=== PATIENT | female | born 1980 | race Caucasian/White ===

== ENCOUNTER → 2018-05-24 09:12 | Outpatient (CLI) | payer OTHER, SELFPAY ==
--- NOTE | 2018-05-27 13:46 | HOLTER_ITS ---
DATE OF DICTATION: May 27, 2018 INDICATION: Palpitations. 48-hour Holter Monitor Baseline sinus rhythm. Average heart rate 91 bpm, minimum heart rate 63 bpm, maximum heart rate 153 bpm. Frequent isolated ventricular ectopy, accounting for 0.3% of total beats. No non-sustained VT. No atrial fibrillation. Rare isolated PAC. No significant pauses or bradyarrhythmias. Patient diary entries of palpitations correspond to sinus rhythm.
== END ==
PROVIDERS: PCP Family Medicine; Visit Provider Family Medicine
DX: R00.2 Palpitations (principal); I49.3 Ventricular premature depolarization; I49.1 Atrial premature depolarization
CPT/HCPCS: 93225

== ENCOUNTER 2019-02-05 08:56 | Emergency (ER) | payer OTHER, SELFPAY ==
--- NOTE | 2019-02-05 09:04 | NUR.NOTE ---
pt states that she developed palpitations a few days ago after which she went to see her PCP who placed her on a batablocker since then PT has felt general malaise and nausea
[2019-02-05 09:07] VITALS: BP 156/109; PULSE 72; RESP 16; TEMP 37.2; O2SAT 98
--- NOTE | 2019-02-05 09:24 | ED.GENADUL_ITS ---
Discharge Plan Disposition Patient Disposition: HOME Condition: Improving Discharge Details Chief Complaint: Nausea/Vomit/Diar Clinical Impression: Anxiety, Medication adverse effect Primary Care Provider: Dave Figueroa ED Provider: Miriam Worthington Home Meds and New Rx's Prescriptions: Discontinued metoprolol succinate 50 mg Tablet Extended Release 24 Hr 50 mg PO DAILY RF: 0 Discharge Instructions Instructions: Anxiety (ED) Additional Instructions: Encourage hydration. Stop taking metoprolol. Please follow-up with your primary care this week for reevaluation. Take your blood pressure when at home, calm and document this discussed with your primary care physician. Try anxiety breaking techniques as discussed. If you develop chest pain, shortness of breath, recurrent symptoms or other new/worsening symptoms please seek care urgently once again Stand Alone Forms: Work Release Referrals: Dave Figueroa [Primary Care Provider] - Medical Decision Making <JUANITO Santizo - Last Filed: 02/05/19 11:33> Patient is a 38 year old female presenitng today with c/c of feeling unwell associated with her new medication, Metoprolol. She began the medications 3 days ago and since then has been experiencing intermittent lightheadedness, palpitations. She reports that these sensations then increase her anxiety leading to increased symtpoms. Patient reports that she took metoprolol this morning. Patient also uses a herbal remedy of rescue remedy for stress relief which she also used this morning. She denies any chest pain but has continued to experience palpitations. No shortness of breath. Patient appears teary and very anxious on exam. Patient is hypertensive at 156/109. Reports normal at 72, vital signs otherwise unremarkable. Plan to reassess patient's blood pressure when she is been able to calm down some she does appear quite anxious at this time. Will review the Holter monitor from 1 year ago. She has been using herbal anxiolytic for the past year, tried to find literature about its ingredients, no literature available. Will obtain EKG, labs. Patient endorsing nausea which she reports is typical for her anxiety, will give ODT Zofran after EKG. EKG reviewed by Dr. Mackay, NSR rate 61, no acute abnormality. Repeat vitals much improved with no hypertension. Labs evaluation is reassuring. Patient is feeling much improved. Her vital signs are improved. She is resting comfortably at this time. I advised that she stop taking metoprolol and follow-up with her primary care this week. Patient has not also checked her blood pressure when not feeling anxious in the physician's office. I advised that she begin checking her blood pressure at home at staggering intervals and keep record of this for her primary care physician. She was given strict return precautions. I encouraged hydration. All of her questions and concerns were addressed and she is in agreement with this plan. <Portillo Mackay DO - Last Filed: 02/05/19 09:54> EKG 9: 35 Rate 61, intervals normal, sinus rhythm, inverted T wave in V1, no Q waves, no significant ST elevation or depression, no epsilon wave, or delta wave. HPI <JUANITO Santizo - Last Filed: 02/05/19 11:33> General Mode of arrival: ambulatory . Date/Time Provider Initiated Documentation: 02/05/19 08:57 . Limitations to Documentation: no limitations . Information obtained by: patient and RN notes reviewed . HPI Narrative: Patient a 38-year-old female with history of anxiety and hypertension, presents today with chief complaint of feeling unwell after taking metoprolol. Patient was seen by her primary care 4 days ago at which time she was noted to be hypertensive. She sought their care after experiencing palpitations. She reports that she has had issues with palpitations since her father committed suicide almost 1 year ago. She did wear a Holter monitor initially which was found to be without significant abnormality. She reports the palpitations have persisted and her primary attributed this to her high blood pressure. Begin her metoprolol which patient reports is making her feel quite poorly. Has been feeling dizzy and presyncopal. Denies any chest pain or shortness of breath. Has been experiencing palpitations still. Has been feeling very anxious recently, has history of anxiety attacks. Denies any thoughts of self harm, suicidal ideation. Related Data Allergies Allergy/AdvReac Type Severity Reaction Status Date / Time escitalopram [From Lexapro] AdvReac Intermediate Agitation Unverified 02/05/19 09:10 Review of Systems <JUANITO Santizo - Last Filed: 02/05/19 11:33> Constitutional Reports as per HPI, Denies chills, Denies fever(s), Denies headache(s), Denies lethargy and Denies poor appetite Eyes Denies change in vision ENT Reports dizziness (lightheaded) and Denies headache(s) Cardiovascular Reports as per HPI, Denies chest pain, Denies chest pain at rest, Denies chest pain with activity, Denies diaphoresis, Denies syncope, Reports rapid heart rate, Reports lightheadedness, Reports palpitations, Denies dyspnea and Denies dyspnea on exertion Respiratory Reports as per HPI, Denies chest congestion, Denies cough, Denies pain on inspiration, Denies pain with cough, Denies dyspnea, Denies dyspnea on exertion and Denies wheezing Gastrointestinal Reports as per HPI, Denies abdominal pain, Denies diarrhea, Reports nausea (endorses with ) and Denies vomiting Musculoskeletal Reports as per HPI and Denies back pain Integumentary/Breasts Reports as per HPI and Denies rash Neurologic Reports as per HPI, Reports dizziness (lightheaded), Denies syncope and Denies headache(s) Psychiatric Reports as per HPI, Reports anxiety, Reports depression, Reports panic attacks, Denies hallucinations, Denies homicidal ideation and Denies suicidal ideation Endocrine Reports palpitations Allergic/Immunologic Denies wheezing PFSH <JUANITO Santizo - Last Filed: 02/05/19 11:33> Social History Smoking/Tobacco Use Status: Never Alcohol Intake: current Alcohol Intake frequency: holidays/special occasions only Alcohol type: hard liquor Drug use: Never Substance use type: does not use Do you feel safe at home: Yes Do you feel safe in your relationship?: Yes Exam <JUANITO Santizo - Last Filed: 02/05/19 11:33> Const General: cooperative, healthy appearing, comfortable, no acute distress, well developed and anxious Nutritional Appearance: well nourished and overweight Orientation: alert, awake and oriented x3 HENMT Head: normal to inspection Ears: hearing grossly normal bilaterally Mouth: moist mucous membranes Chest Chest: normal inspection of the chest, normal palpation of entire chest wall and no crepitus Resp Effort & Inspection: normal respiratory effort, able to speak in complete sentences and no respiratory distress Auscultation: clear to auscultation bilaterally, no rales, no rhonchi and no wheezes Cardio Rate: regular rate Rhythm: regular rhythm Heart Sounds: S1 normal and S2 normal GI Inspection: normal to inspection, no edema and non-distended Palpation: soft, no hepatosplenomegaly, not firm, no guarding, not rigid and nontender Auscultation: normal bowel sounds Back/Spine/Pelvis Back: no CVA tenderness Thoracic/Lumbar Spine: thoracic and lumbar spine normal to inspection Skin General skin exam: no rashes or lesions noted Trauma: no lacerations or abrasions Neuro General: alert, awake and oriented x3 Cognition: normal cognition Speech: speech normal Gait: normal gait Extrem General: normal to inspection, normal capillary refill, no pedal edema, no calf tenderness and normal gait Psych Appearance: grossly normal and well kempt Mental Status: mental status grossly normal Speech and Movement: speech and movement normal
[2019-02-05 09:49] LABS: Abs Immature Grans 0.01 k/cumm (0.0-0.09); Absolute Basophil Count 0.06 k/cumm (0.0-0.2); Absolute Eosinophil Count 0.12 k/cumm (0.0-0.7); Absolute Lymphocyte Count 2.39 k/cumm (1.2-3.4); Absolute Monocyte Count 0.58 k/cumm (0.11-0.7); Absolute Neutrophil Count 2.92 k/cumm (1.2-6.7); HCT 41.7 % (36.0-46.0); HGB 14.2 g/dL (12.0-15.5); Immature Grans % 0.2; Lymphocytes % 39.3; Mean Corp. HGB Concentration 34.1 g/dL (32.0-36.0); Mean Corpuscular Hemoglobin 32.3 pg (27.0-33.0); Mean Corpuscular Volume 94.8 fL (80-95); Mean Platelet Volume 9.7 fL (8.0-11.0); Monocytes % 9.5; Platelet Count 323 x1000/uL (130-400); RBC Distribution Width 12.6 % (11.7-14.6); White Blood Cell Count 6.08 k/cumm (4.4-10.8)
[2019-02-05] MEDS: Ondansetron O.D.T. 4 MG TABEF (09:49)
[2019-02-05 09:52] VITALS: BP 122/85; PULSE 59; RESP 18; TEMP 37.2; O2SAT 98
[2019-02-05 10:04] LABS: ALT 26 U/L (12-78); AST 12 U/L (15-37); Albumin 3.7 g/dL (3.4-5.0); Alkaline Phosphatase 68 U/L (46-116); Anion Gap 6.1 mmol/L (3-11); BUN 13 mg/dL (7-18); Bilirubin, Total 0.4 mg/dL (0.2-1.0); CO2 30.9 mmol/L (21.0-32.0); CREATININE 0.99 mg/dL (0.55-1.02); Calcium 8.4 mg/dL (8.5-10.1); Chloride 102 mmol/L (98-107); Glucose 89 mg/dL (70-100); Magnesium 1.9 mg/dL (1.8-2.4); Potassium 4.1 mmol/L (3.5-5.1); Sodium 139 mmol/L (136-145); Total Protein 7.6 g/dL (6.4-8.2); Troponin I < 0.02 ng/mL (0.00-0.06)
[2019-02-05 10:25] LABS: TSH (W/Ref FT4) 2.72 uIU/mL (0.358-3.74)
[2019-02-05 10:58] VITALS: BP 150/101; PULSE 60; RESP 18; TEMP 36.6; O2SAT 98
== END 2019-02-05 11:00 | disposition home or self-care (01) ==
PROVIDERS: Emergency Provider Physician Assistant; PCP Family Medicine
DX: F41.9 Anxiety disorder, unspecified (principal); R11.0 Nausea; R00.2 Palpitations; T44.7X5A Adverse effect of beta-adrenoreceptor antagonists, initial encounter; I10 Essential (primary) hypertension
CPT/HCPCS: 36415; 80053; 93005; 99283; 83735; 84443; 84484; 85025; 93010

== ENCOUNTER 2019-08-02 08:00 | Outpatient (CLI) | payer OTHER, SELFPAY ==
--- NOTE | 2019-08-02 09:00 | DI.MAMMO_ITS ---
EXAM: MAMMO SCREENING CLINICAL HISTORY: screening, baseline, Z12.39 TECHNIQUE: Bilateral full field digital CC and MLO mammographic images were obtained with 3D tomosyn thesis and utilizing computer aided detection (CAD). COMPARISON: BASELINE SCREENING, Z12.39 FINDINGS: Masses/Architectural Distortion: There is a partially obscured nodular density in the outer retroareo lar region of the right breast. This is best appreciated on the craniocaudad view. Spot compression view and right breast ultrasound are requested for further evaluation. Microcalcifications: No suspicious pleomorphic-type are seen. Skin Thickening/Nipple Retraction: None. IMPRESSION: Additional views of the right breast as described above. BI-RADS Cat 0 - Assessment Incomplete: Need additional imaging evaluation Breast Density - Category B - Scattered areas of fibroglandular density A negative radiographic report should not delay biopsy if a dominant or clinically suspicious mass is present. Up to ten percent of cancers are not identified on mammography. A negative report may reinforce clinical impression. Adenosis and dense breasts may obscure an underlying neoplasm. False positive reports average 6 to 10%.
== END 2019-08-02 08:20 ==
PROVIDERS: PCP Family Medicine; Visit Provider Nurse Practitioner Women's Health
DX: Z12.31 Encounter for screening mammogram for malignant neoplasm of breast (principal); R92.8 Other abnormal and inconclusive findings on diagnostic imaging of breast
CPT/HCPCS: 77063; 77067

== ENCOUNTER 2019-08-09 02:02 | Outpatient (CLI) | payer OTHER, SELFPAY ==
--- NOTE | 2019-08-09 09:19 | DI.MAMMO_ITS ---
EXAM: MG MAMMO SCREEN CALL BACK UNI AND US BREAST RT LIMITED CLINICAL HISTORY: F/U MAMMO, PARTIALLY OBSCURED NODULAR DENSITY, RETROAREOLAR REGION, RIGHT BREAST TECHNIQUE: Ultrasound performed using standard protocol. COMPARISON: 08/02/19 FINDINGS: Additional mammographic views of the right breast and right breast ultrasound are interpreted in conj unction. Additional views confirm a well-circumscribed, fairly low density rounded mass of the 12 o' clock position of the breast measuring up to about 9 millimeters in diameter mammographically. Breas t ultrasound shows a well-circumscribed, horizontally oriented, fairly low echogenicity mass with pro bable internal hilar architecture consistent with lymph node corresponding to the mammographically id entified finding. No additional mass identified ultrasonographically or mammographically. IMPRESSION: No specific evidence of malignancy at this time. Follow-up mammogram suggested in 12 months. Category 2, breast density category B. BI-RADS Cat 2 - Benign Findings Breast Density - Category B - Scattered areas of fibroglandular density
== END 2019-08-09 02:22 ==
PROVIDERS: PCP Family Medicine; Visit Provider Nurse Practitioner Women's Health
DX: Z12.31 Encounter for screening mammogram for malignant neoplasm of breast (principal); R92.8 Other abnormal and inconclusive findings on diagnostic imaging of breast; N63.11 Unspecified lump in the right breast, upper outer quadrant; R59.0 Localized enlarged lymph nodes
CPT/HCPCS: 76642; 77063; 77067

== ENCOUNTER 2020-08-14 13:28 | Outpatient (CLI) | payer OTHER, SELFPAY ==
--- NOTE | 2020-08-14 06:30 | DI.MAMMO_ITS ---
EXAM: MG MAMMO SCREENING CLINICAL HISTORY: screening,z12.39 TECHNIQUE: Bilateral full field digital CC and MLO mammographic images were obtained with 3D tomosyn thesis and utilizing computer aided detection (CAD). COMPARISON: Available for comparison. FINDINGS: Masses/Architectural Distortion: None seen. Stable right retroareolar nodule. Microcalcifications: No suspicious pleomorphic-type are seen. Skin Thickening/Nipple Retraction: None. IMPRESSION: 1. No significant interval change with no specific features of malignancy noted. 2. Unless there is more urgent need, screening mammography is recommended, as per [employer] guidelines. BI-RADS Category 2 - Benign Findings Breast Density - Category B - Scattered areas of fibroglandular density A negative radiographic report should not delay biopsy if a dominant or clinically suspicious mass is present. Up to ten percent of cancers are not identified on mammography. A negative report may reinforce clinical impression. Adenosis and dense breasts may obscure an underlying neoplasm. False positive reports average 6 to 10%. Patient will receive a letter notifying them of these results.
== END 2020-08-14 13:48 ==
PROVIDERS: PCP Family Medicine; Visit Provider Nurse Practitioner Women's Health
DX: Z12.31 Encounter for screening mammogram for malignant neoplasm of breast (principal)
CPT/HCPCS: 77063; 77067

== ENCOUNTER 2020-10-16 23:40 | Emergency (ER) | payer OTHER, SELFPAY ==
[2020-10-16 23:45] VITALS: BP 131/83; PULSE 87; RESP 20; TEMP 36.9; O2SAT 98
--- NOTE | 2020-10-16 23:50 | ED.GENADUL_ITS ---
Discharge Plan Disposition Patient Disposition: HOME Condition: Good Discharge Details Clinical Impression: Anxiety Primary Care Provider: Dave Figueroa ED Provider: Portillo Mackay Home Meds and New Rx's Prescriptions: Continued ascorbate calcium (vitamin C) 500 mg tablet 500 mg PO DAILY RF: 0 cholecalciferol (vitamin D3) 1,000 unit capsule 2,000 unit PO DAILY RF: 0 cyanocobalamin (vitamin B-12) 1,000 mcg/mL drops 3,000 mcg SL DAILY RF: 0 No Action hydrochlorothiazide 12.5 mg Capsule 12.5 mg PO DAILY RF: 0 losartan 25 mg Tablet 25 mg PO DAILY AM RF: 0 Discharge Instructions Instructions: Anxiety (ED) Additional Instructions: At this time your symptoms of fatigue are very consistent with having had the vaccine. The panic attack or something that we can help with. You have been given the antianxiety medication here, please go home and rest. Drink plenty of fluids. If you notice any worsening of your symptoms, or any new symptoms such as vomiting, diarrhea, fever, chills, shortness of breath, chest pain, numbness, weakness, or fainting , please return immediately to the emergency department for reevaluation. Please follow up with your primary care provider as soon as possible for reassessment and reevaluation. As always, it was a pleasure participating in your medical care today. Referrals: Dave Figueroa [Primary Care Provider] - Medical Decision Making 40-year-old female with a past medical history of anxiety, hypertension, presents today for evaluation of anxiety and restlessness. Patient states she had a second Covid vaccine 24 hours Wednesday. Since then she has had mild aches and fatigue, however this evening she felt notably restless while trying to sleep. She states that she felt panicky like the world was closing in around her. She has previous history of anxiety attacks similar to this, she took her herbal supplements but unfortunately these did not help. She denies any homicidal or suicidal ideations, she states her primary request just to be up this week. No other complaints at this time. No other modifying factors. Physical exam is unremarkable. No goiter. Vital signs notably stable. Symptoms appearing consistent with pheochromocytoma, thyrotoxicosis. Symptoms instead appear more consistent with a mild panic attacks. Patient was given Ativan here, she did well with this. Patient will be discharged home with close follow-up with her PCP. Discussed red flags which to return. No clinical evidence of anaphylaxis or other significant adverse vaccine reaction at this time. I have extensively reviewed the treatment plan and discharge instructions with the patient. I have addressed all patient concerns at this time. The patient was made aware of what symptoms to monitor for that would warrant a return to the emergency department. Discussed the plan with the patient, they demonstrate verbal understanding and agreement with our assessment and plan at this time. HPI General Date/Time Provider Initiated Documentation: 10/16/20 23:42 . HPI Narrative: 40-year-old female with a past medical history of anxiety, hypertension, presents today for evaluation of anxiety and restlessness. Patient states she had a second Covid vaccine 24 hours Wednesday. Since then she has had mild aches and fatigue, however this evening she felt notably restless while trying to sleep. She states that she felt panicky like the world was closing in around her. She has previous history of anxiety attacks similar to this, she took her herbal supplements but unfortunately these did not help. She denies any homicidal or suicidal ideations, she states her primary request just to be up this week. No other complaints at this time. No other modifying factors. Related Data Home Medications Medication Instructions Recorded Confirmed ascorbate calcium (vitamin C) 500 500 mg PO DAILY 07/25/19 10/16/20 mg tablet cholecalciferol (vitamin D3) 25 2,000 unit PO DAILY cap 07/25/19 10/16/20 mcg (1,000 unit) capsule cyanocobalamin (vitamin B-12) 3,000 mcg SL DAILY 07/25/19 10/16/20 1,000 mcg/mL sublingual drops hydrochlorothiazide 12.5 mg PO DAILY 10/16/20 10/16/20 losartan 25 mg PO DAILY AM 10/16/20 10/16/20 Allergies Allergy/AdvReac Type Severity Reaction Status Date / Time escitalopram [From Lexapro] AdvReac Intermediate Agitation Unverified 10/16/20 23:55 General BRANDON: 4 Review of Systems All systems reviewed & are unremarkable except as noted in HPI and below PFSH Medical History Anxiety Elevated BP without diagnosis of hypertension Improved with increased exercise Surgical History S/P cholecystectomy Family History Mother Hypertension Sister Hypertension Maternal Grandfather Heart disease Father , Suicide 03/2018 Depression Heart disease Social History Smoking/Tobacco Use Status: Never Smoking risk assessment performed?: Yes Alcohol Intake: current Alcohol Intake frequency: holidays/special occasions only Alcohol type: hard liquor Drug use: Never Substance use type: does not use Do you feel safe at home: Yes Do you feel safe in your relationship?: Yes Female Reproductive History Menstrual Duration of menses: 6-7 days control method: other (partner with vasectomy) History History 2 Para 2 Hx # Term Pregnancies Multiple births Hx # Pregnancies Ectopic pregnancies AB induced Hx Number of Living Children 2 AB spontaneous Exam Narrative Exam Narrative: 1.Const: Well-nourished, Well-developed, appearing stated age 2.Eyes: PERRL, no conjunctival injection, and symmetrical lids. 3.ENT: Atraumatic external nose and ears. Moist MM. Neck: Symmetric, trachea midline, No thyromegaly. 4.CVS: +S1/S2, No murmurs or gallops. Peripheral pulses 2+ and equal in all extremities. Brisk capillary refill in all extremities. 5.RESP: Unlabored respiratory effort. Clear to auscultation bilaterally. No wheezes rales or rhonchi 6.GI: Soft, Nontender/Nondistended, No hepatosplenomegaly. No guarding or rebound. 7.MSK: Normocephalic/Atraumatic, Extremities w/o deformity or ttp No cyanosis or clubbing, Normal movement of all extremities 8.Skin: Warm, Dry. No rashes or lesions. 9.Neuro: extended insurance clerk II-XII grossly intact. Sensation grossly intact, no focal neurologic deficits. 10.Psych: (AAO) x3. Appropriate mood and affect
[2020-10-17] MEDS: LORazepam 1 MG TAB 2 MG PO (00:01)
== END 2020-10-17 00:10 | disposition home or self-care (01) ==
PROVIDERS: Emergency Provider Student in an Organized Health Care Education/Training Program; PCP Family Medicine
DX: F41.0 Panic disorder [episodic paroxysmal anxiety] (principal); R45.1 Restlessness and agitation; R53.83 Other fatigue; I10 Essential (primary) hypertension
CPT/HCPCS: 99283

== ENCOUNTER 2021-08-19 12:31 | Outpatient (CLI) | payer OTHER, SELFPAY ==
--- NOTE | 2021-08-19 13:21 | DI.MAMMO_ITS ---
Exam(s) MAMMO SCREENING EXAM: MAMMO SCREENING CLINICAL HISTORY: screening Z12.39 TECHNIQUE: Mammograms were interpreted according to the usual protocol including computer analysis w [employer] CAD system, tomosynthesis and C-view imaging. COMPARISON: 2018 and 2019 FINDINGS: The breasts are composed of scattered fibroglandular densities, Breast Density category B. No suspicious masses or suspicious microcalcifications are seen. Stable circumscribed area of nodula rity in the 12 o'clock position of the right breast, previously noted to represent a lymph node. No skin thickening or abnormal axillary lymph nodes are seen. There has been no significant change from prior exams. IMPRESSION: BI-RADS Category 1, Negative mammogram Yearly screening mammography is recommended. Breast Density - Category B, scattered fibroglandular densities. A negative radiographic report should not delay biopsy if a dominant or clinically suspicious mass is present. Up to ten percent of cancers are not identified on mammography. A negative report may reinforce clinical impression. Adenosis and dense breasts may obscure an underlying neoplasm. False positive reports average 6 to 10%. Patient will receive a letter notifying them of these results.
== END 2021-08-19 12:51 ==
PROVIDERS: PCP Family Medicine; Visit Provider Nurse Practitioner Women's Health
DX: Z12.31 Encounter for screening mammogram for malignant neoplasm of breast (principal)
CPT/HCPCS: 77063; 77067

== ENCOUNTER 2021-09-09 16:04 | Outpatient (REF) | payer OTHER, SELFPAY ==
--- NOTE | 2021-09-09 15:50 | PAPFT_PTH ---
PATIENT: Adelina Robles LOC: [facility] U#:[id number] AGE/SX: 41/F ROOM: RE09/09/[address]: Columba Rene NP : 1980 BED: DIS: 09/09/2021 SPEC #: [id number] RECD: 09/09/21 17:42 STATUS: [place] REQ #: [id number] BECKY: 09/09/21 15:[address]: Columba Rene NP DEPT: [facility] Cytology RECD BY: Tammy Howard ENTERED: 09/09/21 17:42 SP TYPE: PAPFT OTHR DR: Dave Figueroa Tissues: 1 - CX/ENDOCX FOR PAP SMEARS Procedures: PAP THIN PREP/UVM Screening HPV DNA PROBE Comments: [id number]
== END 2021-09-09 16:05 | disposition home or self-care (01) ==
LOC: LBN 16:04
PROVIDERS: PCP Family Medicine; Visit Provider Nurse Practitioner Women's Health
DX: Z12.4 Encounter for screening for malignant neoplasm of cervix (principal); Z11.51 Encounter for screening for human papillomavirus (HPV)
CPT/HCPCS: 88142; 87624

== ENCOUNTER 2021-11-04 22:21 | Outpatient (CLI) | payer OTHER, SELFPAY ==
--- NOTE | 2021-11-04 | DI.CT_ITS ---
Exam(s) CT ABDOMEN PELVIS W EXAM: CT ABDOMEN PELVIS W CLINICAL HISTORY: ABD MASS UNSPECIFIED, R19.00 TECHNIQUE: Imaging Protocol: Axial computed tomography images with coronal and sagittal reformatted images were created and reviewed CONTRAST MATERIAL: Intravenous: Omnipaque 350 Contrast volume:100 mL Oral: Yes COMPARISON: No exams were available for comparison FINDINGS: ABDOMEN: Lung Bases: Normal where visualized. Liver: Normal density. No measurable mass. Portal, Superior Mesenteric, and Splenic Veins: Unremarkable. Gallbladder and Biliary Tract: Status post cholecystectomy. No biliary ductal dilatation. Pancreas: Normal density, no abnormal calcifications or inflammatory process. Spleen: Normal. Adrenals: No masses seen. Kidneys: Normal size, contour and axis. No nephrolithiasis. There is mild dilatation of the right re nal pelvis and portions of the right ureter to the level of the enlarged uterus. The ureter distally is of normal caliber. This may be due to compression by the enlarged fibroid uterus. No masses see n. Abdominal Aorta: Abdominal portion non-dilated. Bowel: No obstruction or bowel wall thickening. No evidence of appendicitis. Peritoneal Cavity: No ascites, collection or mesenteric inflammatory response. No free air. Lymph Nodes: Within normal limits. Bones: Within normal limits for the patient's age. There are few small round sclerotic foci in the p miriam likely reflecting bone islands. Soft Tissues: There is a small fat containing umbilical hernia. There is a 1.5 x 1.8 cm round subcut aneous nodule on the posterior back. PELVIS: Bladder: Symmetric distention, no gross wall thickening. Reproductive Organs: The uterus is enlarged with multiple masses present. The largest is in the post erior fundus and measures 7.5 x 7 cm. There is a 4.2 x 4.1 cm lesion in the left aspect of the body of the uterus there are several smaller subserosal and intramural masses present. The findings are m ost consistent with fibroids. The ovaries are grossly unremarkable. Lymph Nodes: Within normal limits. Bones: Within normal limits for the patient's age. IMPRESSION: 1. Enlarged fibroid uterus. This corresponds to the palpable abdominal mass. 2. Mild dilatation of the right renal collecting system to the level of the enlarged mass. This is l ikely secondary to external compression. RADIATION DOSE DELIVERED: 1,257.22mGy.cm Total DLP DATA REPOSITORY: All CT scans at this facility are submitted to the National Radiology Data Registry (NRDR) Dose Index Registry (DIR) with the [employer] (A[employer]). RADIATION OPTIMIZATION: All CT scans at this facility use at least one of these dose optimization te chniques: automated exposure control; mA and/or kV adjustment per patient size (includes targeted exa ms where dose is matched to clinical indication); or iterative reconstruction.
[2021-11-04] MEDS: Omnipaque 350 MG/ML 50 ML BTL PO (10:55)
[2021-11-04] MEDS: Breeza Beverage 473 ML BTL 946 ML PO (10:57)
[2021-11-04] MEDS: Omnipaque 350 MG/ML 100 ML BTL IJ (12:32)
== END 2021-11-04 22:41 ==
PROVIDERS: PCP Family Medicine; Visit Provider Nurse Practitioner
DX: N85.2 Hypertrophy of uterus (principal); D25.2 Subserosal leiomyoma of uterus; K42.9 Umbilical hernia without obstruction or gangrene; R19.09 Other intra-abdominal and pelvic swelling, mass and lump
CPT/HCPCS: 74177; J3490; Q9967

== ENCOUNTER 2022-10-09 01:32 | Outpatient (CLI) | payer OTHER, SELFPAY ==
--- NOTE | 2022-10-09 07:00 | DI.MAMMO_ITS ---
Exam(s) MAMMO SCREENING EXAM: MAMMO SCREENING CLINICAL HISTORY: screening,z12.39 TECHNIQUE: Mammograms were interpreted according to the usual protocol including computer analysis w [employer] CAD system, tomosynthesis and C-view imaging. COMPARISON: 2018 through 2020 FINDINGS: The breasts are composed of scattered fibroglandular densities, Breast Density category B. No suspicious masses or suspicious microcalcifications are seen. No skin thickening or abnormal axillary lymph nodes are seen. There has been no significant change from prior exams. IMPRESSION: BI-RADS Category 1, Negative mammogram Yearly screening mammography is recommended. Breast Density - Category B, scattered fibroglandular densities. A negative radiographic report should not delay biopsy if a dominant or clinically suspicious mass is present. Up to ten percent of cancers are not identified on mammography. A negative report may reinforce clinical impression. Adenosis and dense breasts may obscure an underlying neoplasm. False positive reports average 6 to 10%. Patient will receive a letter notifying them of these results.
== END 2022-10-09 01:52 ==
LOC: DI 01:32
PROVIDERS: PCP Family Medicine; Visit Provider Nurse Practitioner Women's Health
DX: Z12.31 Encounter for screening mammogram for malignant neoplasm of breast (principal)
CPT/HCPCS: 77063; 77067

== ENCOUNTER 2023-10-15 17:57 | Outpatient (CLI) | payer OTHER, SELFPAY ==
[2023-10-15 16:05] LABS: TSH (W/Ref FT4) 2.04 uIU/mL (0.36-3.74)
== END 2023-10-15 17:58 | disposition home or self-care (01) ==
LOC: LBO 17:57
PROVIDERS: PCP Family Medicine; Visit Provider Obstetrics & Gynecology Gynecology
DX: G47.00 Insomnia, unspecified (principal)
CPT/HCPCS: 36415; 84443

== ENCOUNTER → 2023-10-22 00:03 | Outpatient (CLI) | payer OTHER, SELFPAY ==
--- NOTE | 2023-10-22 | DI.MAMMO_ITS ---
Exam(s) MAMMO SCREENING EXAM: MAMMO SCREENING CLINICAL HISTORY: SCREENING MAMMO FOR BREAST CANCER Z12.31. TECHNIQUE: Bilateral full field digital CC and MLO mammographic images were obtained with 3D tomosyn thesis and utilizing computer aided detection (CAD). COMPARISON: Prior mammograms were reviewed. FINDINGS: In the right breast there is a 12 o'clock position nodule located 3 cm in from the nipple on the CC v iew which is unchanged from at least 2019. More posteriorly in the right breast on the CC view lateral of center is now a suggestion of a 11 x 1 1 mm nodular density located 9 cm in from the nipple. In the left breast there is a nodular density located laterally on the CC view, 8 cm in from the nipp le, and measuring 10 x 11 mm. This has slightly increased in size. Further imaging required. Other asymmetric densities in the left breast appear unchanged. There are no malignant-appearing microcalcification groups. There is no significant architectural distortion nor skin thickening-retraction. IMPRESSION: Bilateral nodular densities as described above. Spot compression views and bilateral breast ultrasou nd recommended. BI-RADS Category 0 - Assessment Incomplete: Need additional imaging evaluation Breast Density - Category B - Scattered areas of fibroglandular density Breast density Category C or D implies that the patient has dense breast tissue. Dense breast tissue can make it harder to find cancer on a mammogram. Dense breast tissue is also associated with an incr eased risk of breast cancer. This information about the result of the mammogram report was provided to the patient to raise their awareness. Use this report when you speak with the patient about their risks for breast cancer, which includes their family history. At that time, you may recommend additional screening tests (Ultrasoun d or MRI) as these tests may add significant information. A negative radiographic report should not delay biopsy if a dominant or clinically suspicious mass is present. Up to ten percent of cancers are not identified on mammography. A negative report may reinforce clinical impression. Adenosis and dense breasts may obscure an underlying neoplasm. False positive reports average 6 to 10%. Patient will receive a letter notifying them of these results.
== END ==
PROVIDERS: PCP Family Medicine; Visit Provider Obstetrics & Gynecology
DX: Z12.31 Encounter for screening mammogram for malignant neoplasm of breast (principal); R92.323 Mammographic fibroglandular density, bilateral breasts; Z90.710 Acquired absence of both cervix and uterus; R10.32 Left lower quadrant pain
CPT/HCPCS: 77063; 77067

== ENCOUNTER → 2023-10-22 00:49 | Outpatient (CLI) | payer OTHER, SELFPAY ==
--- NOTE | 2023-10-22 | DI.CT_ITS ---
Exam(s) CT ABDOMEN PELVIS W EXAM: CT ABDOMEN PELVIS W CLINICAL HISTORY: LLQ ABD PAIN,R10.32,CONSTIPATION,? DIVERTICULITIS. TECHNIQUE: Imaging Protocol: Axial computed tomography images with coronal and sagittal reformatted images were created and reviewed CONTRAST MATERIAL: Intravenous: Omnipaque-350 100cc Oral: Yes. Oral contrast was also administered for bowel opacification. COMPARISON: CT CT ABDOMEN PELVIS W from 11/04/2021 FINDINGS: VISUALIZED LUNG BASES: No nodules nor pleural effusions evident. ABDOMEN: There is no ascites. LIVER: There are no focal hepatic lesions evident. No dilated intrahepatic ducts. GALLBLADDER/BILIARY: The gallbladder is again noted be surgically absent. CBD is not dilated. PANCREAS: No evidence of pancreatic mass nor dilatation of the pancreatic duct. SPLEEN: Spleen is not enlarged. No obvious intrasplenic lesions. Splenic and portal veins are paten t. ADRENALS: There are no new significant adrenal masses. KIDNEYS:No cysts evident. No solid renal masses. No calculi nor hydronephrosis.. ABDOMINAL AORTA: Abdominal aorta is not enlarged. LYMPH NODES:There is no retroperitoneal nor paraaortic adenopathy. ABDOMINAL WALL: Small fat only containing umbilical hernia peers unchanged from 2 years ago. GI: There is no evidence of bowel obstruction, free air, nor abscess. PELVIS: GI: No evidence of appendicitis.No evidence of significant sigmoid diverticular disease. No obvious colitis pattern. LYMPH NODES: There is no intrapelvic nor inguinal adenopathy. REPRODUCTIVE: Uterus is surgically absent. There are a few follicular cysts in the right ovary, the largest measuring 2 x 2 cm. Ovary size is normal. There is no surrounding fluid. Left ovary unrema rkable. URINARY BLADDER: No calculi nor obvious masses evident OSSEOUS: No fractures and no significant osseous lesions. IMPRESSION: 1. Previous cholecystectomy. No significant dilatation of the biliary tree, both intra and extrahepa tic 2. Uterus is surgically absent. 2 cm follicular cyst in the right ovary noted. No surrounding fluid . Left ovary unremarkable. 3. No evidence of significant sigmoid diverticular disease. 4. No evidence of appendicitis. RADIATION DOSE DELIVERED: 608.88 mGy.cm Total DLP DATA REPOSITORY: All CT scans at this facility are submitted to the National Radiology Data Registry (NRDR) Dose Index Registry (DIR) with the [employer] ([employer]). RADIATION OPTIMIZATION: All CT scans at this facility use at least one of these dose optimization te chniques: automated exposure control; mA and/or kV adjustment per patient size (includes targeted exa ms where dose is matched to clinical indication); or iterative reconstruction.
[2023-10-22] MEDS: Barium Sulfate 2% W/V-Creamy Vanilla Smoothie 450 ML BTL 900 ML PO (08:23)
[2023-10-22 09:04] LABS: BUN 13 mg/dL (7-18); CREATININE 1.1 mg/dL (0.55-1.02); Calcium 9.3 mg/dL (8.5-10.1); Chloride 101 mmol/L (98-107); Estimated GFR 63.54 (mL/min/1.73m2); Glucose 96 mg/dL (74-106); Sodium 140 mmol/L (136-145)
[2023-10-22] MEDS: Omnipaque 350 MG/ML 500 ML BTL-Imaging package 100 ML IJ (10:28)
== END ==
PROVIDERS: PCP Family Medicine; Visit Provider Legal Medicine
DX: Z12.31 Encounter for screening mammogram for malignant neoplasm of breast (principal); Z90.49 Acquired absence of other specified parts of digestive tract; N83.201 Unspecified ovarian cyst, right side
CPT/HCPCS: 80048; 74177

== ENCOUNTER → 2023-10-25 09:01 | Outpatient (CLI) | payer OTHER, SELFPAY ==
--- NOTE | 2023-10-25 | DI.MAMMO_ITS ---
Exam(s) US BREAST RT LIMITED US BREAST LT LIMITED MG MAMMO SCREEN CALL BACK BI EXAM: MG MAMMO SCREEN CALL BACK BI CLINICAL HISTORY: BILAT NODULAR DENSITIES R92.8 ABNL MAMMO. TECHNIQUE: Spot compression digital Mammography views of the bothbreasts with Tomosynthesis followe d by bilateral breast ultrasound. COMPARISON: US US BREAST RT LIMITED from 08/09/2019 US US BREAST RT LIMITED from 10/25/2023 US US BREAST LT LIMITED from 10/25/2023 Mammograms from 2019 through the recent exam of October 27. FINDINGS: RIGHT BREAST: Mammography/Tomosynthesis: Spot compression CC view was performed of the lateral portion of the breast. No persistent abnormali ty. Findings consistent with overlying tissue. Masses/Architectural Distortion: Area of nodularity is again noted in the 12 o'clock position. Microcalcifictions: No suspicious pleomorphic-type are seen. Skin Thickening/Nipple Retraction: None. Right breast US: Echotexture: Normal appearance of the glandular tissue. Shadowing: No suspicious foci. In the 12 o'clock position, there is again noted to be an ovoid vascular hypoechoic, circumscribed no dule measuring 8 x 4 x 8 millimeters. Unchanged or slightly smaller than prior. No abnormalities id entified in the lateral right breast. Ductal dilation: None. LEFT BREAST: Mammography/Tomosynthesis: Masses/Architectural Distortion: Persistent circumscribed nodule seen in the lateral breast, at the m idline on the MLO view. No architectural distortion. Microcalcifictions: No suspicious pleomorphic-type are seen. Skin Thickening/Nipple Retraction: None. Left breast ultrasound: Echotexture: Normal appearance of the glandular tissue. Shadowing: No suspicious foci. In the 3 o'clock position, 4 cm from the nipple, there is an ovoid, circumscribed, hypoechoic nodule which may represent a lymph node versus cluster of microcysts. Ductal dilation: None. IMPRESSION: 1. Right breast: No evidence of malignancy is noted. 2. Left breast: No evidence of malignancy is noted. 3. Unless there is more urgent need, follow-up screening mammography is recommended, as per [employer] guidelines. 4. The findings were discussed with the patient on the date of the examination. BI-RADS Category 2 - Benign Findings Breast Density - Category B - Scattered areas of fibroglandular density A negative radiographic report should not delay biopsy if a dominant or clinically suspicious mass is present. Up to ten percent of cancers are not identified on mammography. A negative report may reinforce clinical impression. Adenosis and dense breasts may obscure an underlying neoplasm. False positive reports average 6 to 10%. Patient will receive a letter notifying them of these results.
== END ==
PROVIDERS: PCP Family Medicine; Visit Provider Obstetrics & Gynecology
DX: Z12.31 Encounter for screening mammogram for malignant neoplasm of breast (principal); R92.8 Other abnormal and inconclusive findings on diagnostic imaging of breast
CPT/HCPCS: 76642; 77063; 77067

== ENCOUNTER 2024-07-03 11:48 | Outpatient (CLI) | payer OTHER, SELFPAY ==
--- NOTE | 2024-07-03 08:45 | DI.RAD_ITS ---
Exam(s) XR KNEE LT 4V AP,LAT,QUIRINO,PAT EXAM: XR KNEE LT 4V AP,LAT,QUIRINO,PAT CLINICAL HISTORY: left knee pain. TECHNIQUE: 2D digital imaging was performed of the left knee. Four images were obtained. Merchant, AP, lateral and PA tunnel views were obtained. COMPARISON: No exams were available for comparison FINDINGS: BONES: No acute fracture is present. No bony destructive lesion is seen. JOINTS: The knee is normally aligned. No joint effusion is seen. No loose body. SOFT TISSUE: Normal. IMPRESSION: No acute abnormalities identified. DATA REPOSITORY: RADIATION DOSE DELIVERED:
== END 2024-07-03 11:49 | disposition home or self-care (01) ==
LOC: DIORS 11:48
PROVIDERS: PCP Family Medicine; Visit Provider Physician Assistant
DX: M25.562 Pain in left knee (principal)
CPT/HCPCS: 73564

== ENCOUNTER 2024-08-15 15:52 | Outpatient (CLI) | payer OTHER, SELFPAY ==
--- NOTE | 2024-08-15 13:45 | DI.MRI_ITS ---
Exam(s) MR LOWER JOINT LT WO EXAM: MR LOWER JOINT LT WO CLINICAL HISTORY: PAIN,INSTABILITY, internal derangement lt knee, M23.92. TECHNIQUE: Multiplanar multisequence MRI was performed. COMPARISON: CR XR KNEE LT 4V AP,LAT,QUIRINO,PAT from 07/03/2024 FINDINGS: BONES: There is no fracture or contusion pattern. JOINTS: There is thinning of the articular cartilage overlying the inferolateral aspect of the patell a. Subchondral edema is also noted. There is a small focus of subchondral hyperintensity in the lat eral tibial plateau with overlying hyperintense signal in the cartilage. There is a small amount of fluid in the joint space. TENDONS: Extensor mechanism: Unremarkable. Medial retinaculum: Unremarkable. Lateral retinaculum: Unremarkable. Popliteus: Unremarkable. MUSCLES: Unremarkable. MENISCI: The medial meniscus is unremarkable. The lateral meniscus is unremarkable. SOFT TISSUES: Unremarkable. LIGAMENTS: Anterior Cruciate: Unremarkable. Posterior Cruciate: Unremarkable. Medial Collateral:Unremarkable. Lateral Collateral: Unremarkable. OTHER: IMPRESSION: 1. No evidence of a meniscal or ligament tear. 2. 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 DATA REPOSITORY:
== END 2024-08-15 16:12 ==
LOC: DI 15:53
PROVIDERS: PCP Family Medicine; Visit Provider Student in an Organized Health Care Education/Training Program
DX: M94.262 Chondromalacia, left knee (principal)
CPT/HCPCS: 73721

== ENCOUNTER 2024-10-27 11:16 | Outpatient (CLI) | payer OTHER, SELFPAY ==
--- NOTE | 2024-10-27 14:09 | DI.MAMMO_ITS ---
Exam(s) MAMMO SCREENING EXAM: MAMMO SCREENING CLINICAL HISTORY: SCREENING,Z12.31. TECHNIQUE: Bilateral full field digital CC and MLO mammographic images were obtained with 3D tomosyn thesis and utilizing computer aided detection (CAD). COMPARISON: Prior mammograms were reviewed. Prior ultrasound examination 10/25/2023 was reviewed. FINDINGS: There has been no significant change in the appearance and distribution of the fibroglandular tissue. The right breast at 12 o'clock position the CC view there is a nodular density which is unchanged fro m prior mammograms dating back to 2019 and has also been shown to be stable on prior ultrasound exam[facility]. There are no new mammographic findings in the right breast. The left breast the small nodular density lateral of center on the CC view is also unchanged. This c orresponds to a stable benign-appearing finding on ultrasound examination at 3 o'clock position seen on ultrasound examination of October 2023. There are no new spiculated masses nor new malignant appearing microcalcification groups in either br east. There is no significant architectural distortion nor skin thickening-retraction. IMPRESSION: Stable benign-appearing findings. No radiographic evidence of malignancy. BI-RADS Category 2 - Benign Findings Breast Density - Category B - Scattered areas of fibroglandular density Breast density Category C or D implies that the patient has dense breast tissue. Dense breast tissue can make it harder to find cancer on a mammogram. Dense breast tissue is also associated with an incr eased risk of breast cancer. This information about the result of the mammogram report was provided to the patient to raise their awareness. Use this report when you speak with the patient about their risks for breast cancer, which includes their family history. At that time, you may recommend additional screening tests (Ultrasoun d or MRI) as these tests may add significant information. A negative radiographic report should not delay biopsy if a dominant or clinically suspicious mass is present. Up to ten percent of cancers are not identified on mammography. A negative report may reinforce clinical impression. Adenosis and dense breasts may obscure an underlying neoplasm. False positive reports average 6 to 10%. Patient will receive a letter notifying them of these results.
== END 2024-10-27 11:36 ==
LOC: DI 11:17
PROVIDERS: PCP Family Medicine; Visit Provider Obstetrics & Gynecology
DX: Z12.31 Encounter for screening mammogram for malignant neoplasm of breast (principal); R92.323 Mammographic fibroglandular density, bilateral breasts; D24.1 Benign neoplasm of right breast; D24.2 Benign neoplasm of left breast
CPT/HCPCS: 77063; 77067